=== PATIENT | male | born 1990 | race Caucasian/White ===

== ENCOUNTER 2020-09-17 23:09 | Emergency (ER) | payer SELFPAY ==
[2020-09-18] MEDS ORDERED: IBUPROFEN600 MG PO (03:27)
[2020-09-18] MEDS ORDERED: CEPHALEXIN500 M1 PO (03:27)
[2020-09-18] MEDS ORDERED: BACTROBAN OINT22 GM EXT (03:27)
== END 2020-09-18 03:35 | disposition home or self-care (01) ==
LOC: ER1 23:09
DX: M79.5 Residual foreign body in soft tissue (principal); F17.210 Nicotine dependence, cigarettes, uncomplicated
CPT/HCPCS: 73130; 99283